=== PATIENT | female | born 1975 | race Hispanic/Latino ===

== ENCOUNTER 2019-04-08 20:09 | Emergency (ER) | payer MEDICAID | END 2019-04-08 20:52 | disposition home or self-care (01) | LOC: EDH 20:09 | DX: I82.612 Acute embolism and thrombosis of superficial veins of left upper extremity (principal); F41.9 Anxiety disorder, unspecified; F31.9 Bipolar disorder, unspecified | CPT/HCPCS: 99281 ==

== ENCOUNTER → 2020-03-26 | Outpatient (CLI) | payer MEDICAID | END | disposition home or self-care (01) | LOC: RAH 16:24 | PROVIDERS: ATTEND Family Medicine | DX: M77.31 Calcaneal spur, right foot (principal); M79.89 Other specified soft tissue disorders | CPT/HCPCS: 72040; 73630 ==